=== PATIENT | male | born 1995 | race Caucasian/White ===

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

== ENCOUNTER 2017-03-06 15:53 | Emergency (ER) | payer OTHER ==
[2017-03-06 16:43] VITALS: BP 136/72
== END 2017-03-06 16:43 | disposition home or self-care (01) ==
LOC: ED 15:53
DX: Z76.0 Encounter for issue of repeat prescription (principal); R56.9 Unspecified convulsions